=== PATIENT | male | born 1955 | race Caucasian/White ===

== ENCOUNTER 2018-05-16 10:12 | Emergency (ER) | payer SELFPAY ==
[2018-05-16] MEDS ORDERED: VANCOMYCIN HCL INJ 1000 MG VIAL IV ONE (10:29)
--- NOTE | 2018-05-16 10:32 | ER Document Report ---
ED Medical Screen (RME) - General Chief Complaint: Arm Pain Stated Complaint: ELBOW PAIN Time Seen by Provider: 05/16/18 10:28 Mode of Arrival: Ambulatory Information source: Patient Notes: 62-year-old man with a history of a staph infection of the left arm presenting with redness, pain and swelling to the left forearm extending over the elbow. Patient states the symptoms started Wednesday evening. No known trauma. He states he bumped his elbow 2 weeks ago but does not know if that has anything to do with it. He denies fever. No history of diabetes. Patient does have swelling over the proximal forearm with erythema and tenderness to palpation. He is tender over the olecranon bursa. Flexing the elbow from 0-30 does not elicit pain, but he does have pain elicited when flexxed greater than 30. TRAVEL OUTSIDE OF THE [place] IN LAST 30 DAYS: No - Related Data Allergies/Adverse Reactions: codeine Allergy (Mild, Verified 05/16/18 10:17) Hives Past Medical History - Social History Chew tobacco use (# tins/day): No Frequency of alcohol use: Social Drug Abuse: None Renal/ Medical History: Denies: Hx Peritoneal Dialysis Past Surgical History: Reports: Hx Tonsillectomy - Immunizations Hx Diphtheria, Pertussis, Tetanus Vaccination: Yes Physical Exam - Vital signs Vitals: Temp Pulse Resp BP Pulse Ox 98.0 F 83 14 125/93 H 100 05/16/18 10:05/16/18 10:05/16/18 10:05/16/18 10:05/16/18 10:17 Course - Vital Signs Vital signs: Temp Pulse Resp BP Pulse Ox 98.0 F 83 14 125/93 H 100 05/16/18 10:05/16/18 10:05/16/18 10:17 05/16/18 10:17 05/16/18 10:17
[2018-05-16 11:03] LABS: ABSOLUTE LYMPHOCYTES (AUTO) 2.5 10^3/uL (0.5-4.7); ABSOLUTE MONOCYTES (AUTO) 1.2 10^3/uL (0.1-1.4); ABSOLUTE NEUT (AUTO) 6.6 10^3/uL (1.7-8.2); BASOPHILS % (AUTO) 0.3 % (0-2); EOSINOPHILS % (AUTO) 0.3 % (0-6); HEMATOCRIT 46.4 % (37.9-51.0); HEMOGLOBIN 15.6 g/dL (13.5-17.0); LYMPHOCYTES % (AUTO) 23.8 % (13-45); MEAN CORPUSCULAR HEMOGLOBIN 32.9 pg (27.0-33.4); MEAN CORPUSCULAR HGB CONC 33.5 g/dL (32.0-36.0); MEAN CORPUSCULAR VOLUME 98 fl (80-97); MONOCYTES % (AUTO) 11.7 % (3-13); PLATELET COUNT 319 10^3/uL (150-450); RED BLOOD COUNT 4.73 10^6/uL (4.35-5.55); RED CELL DISTRIBUTION WIDTH 13.1 % (11.5-14.0); SEGMENTED NEUTROPHILS % (AUTO) 63.9 % (42-78); TOTAL CELLS COUNTED % (AUTO) 100 %; WHITE BLOOD COUNT 10.4 10^3/uL (4.0-10.5)
--- NOTE | 2018-05-16 11:15 | RADIOLOGY REPORT (SQ) ---
EXAM DESCRIPTION: ELBOW LEFT OVER 2 VIEWS COMPLETED DATE/TIME: 05/16/2018 11:02 am REASON FOR STUDY: left elbow pain and swelling COMPARISON: None. NUMBER OF VIEWS: Four views left elbow. LIMITATIONS: None. FINDINGS: Normal bone density. No fracture or bone lesion. Faint calcifications along the medial a nd lateral epicondyles likely related to epicondylitis. Slight swelling over the olecranon. Minimal triceps enthesopathy. Anterior fat pad demonstrated but not clearly elevated to suggest significant effusion. OTHER: No other significant finding. IMPRESSION: No fracture. Changes suggestive of chronic epicondylitis and potential olecranon bursit is. TECHNICAL DOCUMENTATION: JOB ID: [id number] Reading location - IP/workstation name: [email or web address]
--- NOTE | 2018-05-16 11:15 | ER Document Report ---
ED Extremity Problem, Upper - General Chief Complaint: Arm Pain Stated Complaint: ELBOW PAIN Time Seen by Provider: 05/16/18 10:28 Mode of Arrival: Ambulatory Information source: Patient Notes: 62 yo male c/o pain and swelling to left elbow. Hit the elbow 2 weeks ago, then this wednesday it got swollen, red, painful. No fever or bodyaches. Hx Staph infection in same area 20 years ago. TRAVEL OUTSIDE OF THE [place] IN LAST 30 DAYS: No - Related Data Allergies/Adverse Reactions: codeine Allergy (Mild, Verified 05/16/18 10:17) Hives Past Medical History - General Information source: Patient - Social History Smoking Status: Current Every Day Smoker Chew tobacco use (# tins/day): No Frequency of alcohol use: Heavy Drug Abuse: None Lives with: Family Family History: Reviewed & Not Pertinent Patient has suicidal ideation: No Patient has homicidal ideation: No - Medical History Medical History: Negative Renal/ Medical History: Denies: Hx Peritoneal Dialysis Past Surgical History: Reports: Hx Tonsillectomy - Immunizations Hx Diphtheria, Pertussis, Tetanus Vaccination: Yes Review of Systems - Review of Systems Constitutional: No symptoms reported EENT: No symptoms reported Cardiovascular: No symptoms reported Respiratory: No symptoms reported Gastrointestinal: No symptoms reported Genitourinary: No symptoms reported Male Genitourinary: No symptoms reported Musculoskeletal: See HPI Skin: No symptoms reported Hematologic/Lymphatic: No symptoms reported Neurological/Psychological: No symptoms reported Physical Exam - Vital signs Vitals: Temp Pulse Resp BP Pulse Ox 98.0 F 83 14 125/93 H 100 05/16/18 10:17 05/16/18 10:17 05/16/18 10:17 05/16/18 10:17 05/16/18 10:17 Interpretation: Normal - General General appearance: Appears well, Alert In distress: None - HEENT Head: Normocephalic, Atraumatic Eyes: Normal Pupils: PERRL Neck: Supple - Respiratory Respiratory status: No respiratory distress Chest status: Nontender Breath sounds: Normal Chest palpation: Normal - Cardiovascular Rhythm: Regular Heart sounds: Normal auscultation Murmur: No - Back Back: Normal, Nontender - Extremities General upper extremity: Tender - olecranon bursa, red, tender, with crusted abrasion. erythema from mid forearm to 3 inches above the elbow, no circumferential, nontender except for olecranon., Edema, Normal ROM - no increased pain with ROM elbow General lower extremity: Normal inspection, Nontender, Normal color, Normal ROM , Normal temperature, Normal weight bearing. No: Hellen's sign - Neurological Neuro grossly intact: Yes Cognition: Normal Orientation: AAOx4 Jose Coma Scale Eye Opening: Spontaneous [place] Coma Scale Verbal: Oriented Jose Coma Scale Motor: Obeys Commands Jose Coma Scale Total: 15 Speech: Normal Motor strength normal: LUE, RUE, LLE, RLE Sensory: Normal - Psychological Associated symptoms: Normal affect, Normal mood - Skin Skin Temperature: Warm Skin Moisture: Dry Skin Color: Normal Course - Re-evaluation Re-evalutation: 05/16/18 11:[address] [place]wood, needs to be I and D'd, no joint pain with ROM - Vital Signs Vital signs: Temp Pulse Resp BP Pulse Ox 99.0 F 81 19 145/97 H 99 05/16/18 13:34 05/16/18 13:34 05/16/18 13:01 05/16/18 13:34 05/16/18 13:34 - Laboratory Result Diagrams: 05/16/18 10:40 05/16/18 10:40 Laboratory results interpreted by me: 05/16/18 10:40 MCV 98 H Procedures - Incision and Drainage Left Elbow Time completed: 13:15 Type: Simple Anesthetic type: 1% Lidocaine mL's of anesthetic: 5 Blade size: 11 I&D procedure: Betadine prep applied, Other - corner of 4 x 4 placed in incision Incision Method: Incision made by scalpel - t shaped Amount/type of drainage: small pus, ? cystic sac pieces, blood Discharge - Discharge Clinical Impression: Infection of left olecranon bursa, Cellulitis of left arm Condition: Good Disposition: HOME, SELF-CARE Instructions: Abscess ([facility]), Cellulitis ([facility]), Olecranon Bursitis ([facility]) Additional Instructions: Return to the emergency room tomorrow for elbow recheck Sling Warm compress today Elevate the extremity above the heart today Take the antibiotics as prescribed Tylenol and Motrin for pain Prescriptions: Ibuprofen [Motrin 600 mg Tablet] 600 mg PO Q8HP PRN #20 tablet PRN Reason: Cephalexin Monohydrate [Keflex 500 mg Capsule] 500 mg PO QID #28 capsule Sulfamethoxazole/Trimethoprim [Sulfamethoxazole-Tmp Ds Tablet] 1 each PO BID # 14 tablet
[2018-05-16 11:23] LABS: ALANINE AMINOTRANSFERASE 22 U/L (21-72); ALBUMIN 4.1 g/dL (3.5-5.0); ALKALINE PHOSPHATASE 94 U/L (38-126); ANION GAP 14 (5-19); ASPARTATE AMINO TRANSFERASE 28 U/L (17-59); BILIRUBIN,DIRECT 0.3 mg/dL (0.0-0.4); BILIRUBIN,TOTAL 0.7 mg/dL (0.2-1.3); BLOOD UREA NITROGEN 8 mg/dL (7-20); CALCIUM 9.1 mg/dL (8.4-10.2); CARBON DIOXIDE 27 mmol/L (22-30); CHLORIDE 102 mmol/L (98-107); GLUCOSE 82 mg/dL (75-110); POTASSIUM 4.1 mmol/L (3.6-5.0); SODIUM 142.5 mmol/L (137-145); TOTAL PROTEIN 7.8 g/dL (6.3-8.2)
[2018-05-16] MEDS ORDERED: IBUPROFEN 600 MG TABLET PO ONE (11:42)
[2018-05-16] MEDS ORDERED: ACETAMINOPHEN 325 MG TABLET PO ONE (11:43)
[2018-05-16 13:39] VITALS: BP 145/97
== END 2018-05-16 13:40 | disposition home or self-care (01) ==
LOC: ER 10:12
DX: M71.122 Other infective bursitis, left elbow (principal); L03.114 Cellulitis of left upper limb; M25.522 Pain in left elbow; M79.89 Other specified soft tissue disorders; F17.200 Nicotine dependence, unspecified, uncomplicated
CPT/HCPCS: 99283; 36415; 87040; 87070; 87205; 85025; 87077; 80053; 87186; 83605; 73080; J3370

== ENCOUNTER 2018-05-17 15:51 | Emergency (ER) | payer SELFPAY ==
[2018-05-17 16:25] VITALS: BP 123/88
[2018-05-17] MEDS ORDERED: CEPHALEXIN 500 MG CAPSULE PO ONE (16:36)
[2018-05-17] MEDS ORDERED: SULFAMETHOXAZOLE/TRIMETHOPRIM 800-160 MG TABLET PO ONE (16:36)
--- NOTE | 2018-05-17 16:41 | ER Document Report ---
HPI - HPI Patient complains to provider of: recheck elbow Onset: Other - yesterday Quality of pain: Achy Pain Level: 2 Context: 62 yo male here for recheck of left elbow abscess that I incised yesterday. He states it feels much better. Could not afford the RX. Associated Symptoms: None Exacerbated by: Denies Relieved by: Denies Similar symptoms previously: No Recently seen / treated by doctor: Yes - ROS ROS below otherwise negative: Yes Systems Reviewed and Negative: Yes All other systems reviewed and negative - MUSCULOSKELETAL Musculoskeletal: REPORTS: Extremity pain - L elbow Past Medical History - General Information source: Patient - Social History Smoking Status: Current Every Day Smoker Lives with: Family Family History: Reviewed & Not Pertinent Patient has suicidal ideation: No Patient has homicidal ideation: No - Medical History Medical History: Negative Renal/ Medical History: Denies: Hx Peritoneal Dialysis Past Surgical History: Reports: Hx Tonsillectomy - Immunizations Hx Diphtheria, Pertussis, Tetanus Vaccination: Yes Vertical Provider Document - CONSTITUTIONAL Agree With Documented VS: Yes Exam Limitations: No Limitations - INFECTION CONTROL TRAVEL OUTSIDE OF THE [place] IN LAST 30 DAYS: No - MUSCULOSKELETAL/EXTREMETIES Musculoskeletal/Extremeties: CHANTEL FROM Notes: only red at the incised olecranon left elbow abscess, all other arm erythema resolved. FRO< No pus. - NEURO Level of Consciousness: Awake Course - Vital Signs Vital signs: Temp Pulse Resp BP Pulse Ox 97.7 F 79 16 123/88 H 100 05/17/18 16:23 05/17/18 16:23 05/17/18 16:23 05/17/18 16:23 05/17/18 16:23 Discharge - Discharge Clinical Impression: Left elbow abscess incision and drainage Condition: Good Disposition: HOME, SELF-CARE Instructions: Cephalexin ([facility]), Dressing Instructions for Open Wounds ([facility]), Trimethoprim-Sulfa ([facility]) Additional Instructions: Continue to elevate and use warm compresses Take the antibiotics as prescribed Return to the emergency room if the swelling and redness enlarges again and does not continue to improve
== END 2018-05-17 16:54 | disposition home or self-care (01) ==
LOC: ER 15:51
DX: L02.414 Cutaneous abscess of left upper limb (principal); F17.200 Nicotine dependence, unspecified, uncomplicated
CPT/HCPCS: 99281